=== PATIENT | female | born 1975 | race African-American/Black ===

== ENCOUNTER 2019-01-20 07:16 | Day surgery (SDC) | payer OTHER ==
--- NOTE | 2019-01-19 10:41 | NUR ---
Patient is "getting Depo shots every 90 days" as claimed.--last dose was Oct.
[~2019-01-20] VITALS: Ht 154.9 cm; Wt 68.0 kg
[2019-01-20] VITALS (9 sets, daily range): BP systolic 103–132; BP diastolic 56–75
[~2019-01-20 07:16] MED LIST: AMLODIPINE BESY10 MG ORAL; SEROQUEL200 MG ORAL; ceFAZolin 1gm IVPB IVPB ONE; celeBREX 200mg Cap **SURGERY PATIENTS ONLY ORAL ONE; oxyCONTIN 20mg tab ORAL ONE
--- NOTE | 2019-01-20 07:43 | Pre-Procedure Note/Attestation ---
Pre-Procedure Note/Attestation Complete Prior to Procedure Planned Procedure: right Procedure Narrative: knee diagnostic arthroscopy, possible synnovectomy, possible menisectomy Indications for Procedure Pre-Operative Diagnosis: right knee internal derangement Attestation I attest that I discussed the nature of the procedure; its benefits; risks and complications; and alternatives (and the risks and benefits of such alternatives ), prior to the procedure, with the patient (or the patient's legal customer account representative). I attest that, if there was a reasonable possibility of needing a blood transfusion, the patient (or the patient's legal customer account representative) was given the [facility] standardized written summary, pursuant to the [place] Blood Safety Act ([place] Health and Safety Code # 1645, as amended). I attest that I re-evaluated the patient just prior to the surgery and that there has been no change in the patient's H&P, except as documented below: Villa Hemphill MD Jan 20, 2019 07:43
--- NOTE | 2019-01-20 07:44 | Operative Note - PDOC ---
Operative Note Operative Note Pre-op Diagnosis: right knee internal derangement Procedure: op report Post-op Diagnosis: same as pre-op plus Operative Findings: consistent w/pre-op dx studies Anesthesia: MAC Specimen: none Complications: none Condition: stable Estimated Blood Loss: none Implant(s) used?: No Villa Hemphill MD Jan 20, 2019 07:44
[2019-01-20] MEDS ORDERED: D5 1/2NS 1,000 ML IV SCH (07:45)
[2019-01-20] MEDS ORDERED: Tylenol #3 tab (300mg/30mg) ORAL PRN (07:45)
[2019-01-20] MEDS ORDERED: HYDROmorphone 1mg/ml Carpuject SUBQ PRN (07:45)
[2019-01-20] MEDS ORDERED: HYDROcodone/Acetamin 5/325 tab ORAL PRN (07:45)
[2019-01-20] MEDS ORDERED: celeBREX 200mg Cap **SURGERY PATIENTS ONLY ORAL ONE (08:17)
[2019-01-20] MEDS ORDERED: oxyCONTIN 20mg tab ORAL ONE (08:17)
[2019-01-20] MEDS ORDERED: Kenalog-40 1ml Vial ONE (08:48)
[2019-01-20] MEDS ORDERED: Ketorolac 30mg Inj ONE ×2 (08:48→09:00)
[2019-01-20] MEDS ORDERED: Bupivacaine 0.25% Inj 30ml INJ ONE (08:49)
[2019-01-20] MEDS ORDERED: Duramorph PF 5mg/10ml amp ONE (08:49)
[2019-01-20] MEDS ORDERED: Bupivacaine w/Epi 0.25% 30ml Vial INJ ONE (08:49)
[2019-01-20] MEDS ORDERED: Lidocaine 1% 10mg/ml/Epi 0.005mg/ml 30ml vial INJ ONE (08:49)
[2019-01-20] MEDS ORDERED: LR 1000ml ONE (09:00)
[2019-01-20] MEDS ORDERED: Sterile Water Irrig 1000ml IRRIG ONE (09:00)
[2019-01-20] MEDS ORDERED: fentaNYL 100 mcg/2 mL IV ONE (09:02)
[2019-01-20] MEDS ORDERED: NS Irrig 4000ml IRRIG ONE (09:05)
[2019-01-20] MEDS ORDERED: Duramorph PF 5mg/10ml amp IV ONE (09:05)
[2019-01-20] MEDS ORDERED: Propofol 200mg/20ml IV ONE (09:23)
[2019-01-20] MEDS ORDERED: Metoclopramide 10mg/2ml Inj ONE (09:23)
[2019-01-20] MEDS ORDERED: Lidocaine 1% MPF 10mg/ml 5ml ONE (09:23)
--- NOTE | 2019-01-20 09:58 | Immediate Post-Op Evaluation ---
Immediate Post-Op Evalulation Immediate Post-Op Evalulation Procedure: right knee scope Date of Evaluation: Jan 20, 2019 Time of Evaluation: 09:57 IV Fluids: 600 Blood Pressure Systolic: 130 Blood Pressure Diastolic: 70 Pulse Rate: 81 Respiratory Rate: 14 O2 Sat by Pulse Oximetry: 100 Temperature (Fahrenheit): 97.9 Nausea: No Vomiting: No Complications none Patient Status: awake, reacts, patent Hydration Status: adequate Drug: ancef Given Within 1 Hr of Incision: Yes Time Given: 09:10 Sepideh Martinez CRNA Jan 20, 2019 09:58
[2019-01-20] MEDS ORDERED: fentaNYL 100 mcg/2 mL IV PRN (10:00)
--- NOTE | 2019-01-20 10:01 | Anethesia Preoperative Eval ---
Anesthesia Pre-op PMH/ROS General Date of Evaluation: Jan 20, 2019 Time of Evaluation: 09:00 Anesthesiologist: adela ASA Score: ASA 2 Mallampati Score Class I : Soft palate, uvula, fauces, pillars visible Class II: Soft palate, uvula, fauces visible Class III: Soft palate, base of uvula visible Class IV: Only hard plate visible Mallampati Classification: Class II Surgeon: brandin Diagnosis: knee pain Surgical Procedure: right knee scope Anesthesia History: none Social History: smoking, current smoker, alcohol use, drug use Allergies: Coded Allergies: No Known Allergies (Unverified , 01/19/19) Medications: see eMAR Patient NPO?: Yes NPO Date: Jan 20, 2019 NPO Time: 00:01 Past Medical History Cardiovascular: Reports: HTN Pulmonary: Denies: asthma, COPD, RICCO, other Gastrointestinal/Genitourinary: Reports: GERD; Denies: CRI, ESRD, other Neurologic/Psychiatric: Denies: dementia, CVA, depression/anxiety, TIA, other Endocrine: Denies: DM, hypothyroidism, steroids, other HEENT: Denies: cataract (L), cataract (R), glaucoma, [place] (L), [place] (R), other Hematology/Immune: Denies: anemia, DVT, bleeding disorder, other Musculoskeletal/Integumentary: Denies: OA, RA, DJD, DDD, edema, other PSxH Narrative: bowel surgery and jaw surgery - no anesthesia complication Anesthesia Pre-op Phys. Exam Physician Exam Last Vital Signs Date Time Temp Pulse Resp B/P (MAP) Pulse Ox O2 Delivery O2 Flow Rate FiO2 01/20/19 08:00 98.0 75 20 117/75 97 Room Air Constitutional: NAD Neurologic: CN 2-12 intact Cardiovascular: RRR Respiratory: CTA Gastrointestinal: S/NT/ND Airway Exam Mallampati Classification 2 Mallampati Score: Class II MO: full ROM: full Dentures: no upper, no lower Anesthesia Pre-op A/P Labs Urine Test Test 01/20/19 07:30 Urine HCG, Qualitative Negative (NEGATIVE) Studies Pre-op Studies: EKG - sr Risk Assessment & Plan Assessment: denies cp sob Plan: general lma Pre-Antibiotics Drug: ancef Given Within 1 Hr of Incision: Yes Time Given: 09:10 Sepideh Martinez CRNA Jan 20, 2019 10:01
--- NOTE | 2019-01-20 14:35 | 48 Hour Post Anesthesia Eval ---
Post Anesthesia Evaluation Procedure: right knee scope Date of Evaluation: Jan 20, 2019 Time of Evaluation: 14:35 Blood Pressure Systolic: 103 0: 56 Pulse Rate: 69 Respiratory Rate: 14 O2 Sat by Pulse Oximetry: 99 Airway: patent Nausea: No Vomiting: No Hydration Status: adequate Cardiopulmonary Status: stable Mental Status/LOC: patient returned to baseline Post-Anesthesia Complications: none Follow-up care needed: N/A Sepideh Martinez CRNA Jan 20, 2019 14:35
--- NOTE | 2019-01-20 18:30 | Operative Note - Dictated ---
DATE OF OPERATION: 01/20/2019 PREOPERATIVE DIAGNOSIS: Right knee internal derangement and possible lateral meniscal tear. POSTOPERATIVE DIAGNOSIS: 1. Right knee lateral meniscus tear. 2. Hypertrophic synovial tissue of lateral and patellofemoral compartment. PROCEDURES: 1. Right knee diagnostic arthroscopy with partial lateral meniscectomy. 2. Synovectomy medial, lateral, and patellofemoral compartment. SURGEON: Villa Hemphill M.D. ANESTHESIA: MAC with local. INDICATION FOR PROCEDURE: The patient is a pleasant 43-year-old female, who sustained an injury to the right knee. Subsequently, he had an MRI, which showed a lateral meniscus tear. She failed conservative treatment and elected to undergo right knee arthroscopic lateral meniscectomy. Risks, limitations, expectations, and complications of the procedure were discussed in detail. All questions were addressed. DESCRIPTION OF PROCEDURE: After informed consent was obtained, the patient was brought to the operating room and was placed under general anesthesia. The right leg was prepped and draped in a routine fashion. Ancef was administered. Time-out was performed. Inferolateral stab incision was then made. Trocar was introduced into the knee joint. There is hypertrophic fat pad synovial tissue making visualization of patellofemoral compartment somewhat difficult. Medial gutter was free of any loose bodies. Medial compartment was entered. Medial working portal was established and the meniscus was probed and noted to be intact. There is grade 1 chondral damage of the tibial plateau. No chondral damage in the medial femoral condyle. There is hypertrophic fat pad, which was excised to better visualize the anterior horn. This was extended into the intercondylar notch to better visualize the anterior cruciate ligament. The anterior cruciate ligament was probed and noted to be intact. Lateral compartment was entered. There is a tear of the lateral meniscus. Partial meniscectomy using a shaver was performed. Once that was completed, the camera was placed in the patellofemoral compartment. An excision of the fat pad synovial tissue was completed. Once that was done, the instruments were removed. Portal sites were closed with 3-0 Monocryl sutures. Steri-Strips and a sterile dressing were applied. The patient was awoken and taken to recovery room with stable vital signs. ESTIMATED BLOOD LOSS: None. COMPLICATIONS: None. SPECIMENS: None. IMPLANTS: None. Villa Hemphill M.D. DR: MANUEL JOB#: [id number] CC:
== END 2019-01-20 11:50 | disposition home or self-care (01) ==
LOC: SUR 07:16
DX: S83.281A Other tear of lateral meniscus, current injury, right knee, initial encounter (principal); M79.4 Hypertrophy of (infrapatellar) fat pad; I10 Essential (primary) hypertension; K21.9 Gastro-esophageal reflux disease without esophagitis; X58.XXXA Exposure to other specified factors, initial encounter; Y92.9 Unspecified place or not applicable
CPT/HCPCS: 29876; 29881; 81025; J0690; J1885; J2405; J2704; J2765; J3010; J3301; J3490; 94003; 94150